=== PATIENT | male | born 1980 | race Caucasian/White ===

== ENCOUNTER 2017-07-15 22:01 | Emergency (ER) | payer OTHER | END 2017-07-15 23:02 | disposition home or self-care (01) | LOC: FTE 22:01 | DX: J02.9 Acute pharyngitis, unspecified (principal); E11.9 Type 2 diabetes mellitus without complications | CPT/HCPCS: 99283; Z7502 ==

== ENCOUNTER → 2018-01-02 | Emergency (ER) | payer OTHER | END | disposition home or self-care (01) | LOC: FTE 08:29 | DX: J02.9 Acute pharyngitis, unspecified (principal); R51 Headache; E11.9 Type 2 diabetes mellitus without complications | CPT/HCPCS: 99282 ==

== ENCOUNTER 2018-04-03 09:30 | Emergency (ER) | payer OTHER ==
[2018-04-03] MEDS: KETOROLAC 30 MG INJ IM (10:27)
== END 2018-04-03 12:14 | disposition home or self-care (01) ==
LOC: FTE 09:30
DX: J06.9 Acute upper respiratory infection, unspecified (principal)
CPT/HCPCS: 71046; 87400; 96372; 99284-25

== ENCOUNTER 2018-05-07 08:28 | Emergency (ER) | payer OTHER ==
[2018-05-07] MEDS: DEXAMETHASONE 10 MG/ML 1 ML INJ IM (09:10)
[2018-05-07] MEDS: KETOROLAC 30 MG INJ IM (09:10)
== END 2018-05-07 11:02 | disposition home or self-care (01) ==
LOC: FTE 08:28
DX: J06.9 Acute upper respiratory infection, unspecified (principal)
CPT/HCPCS: 87070; 87880; 96372; 99284-25